=== PATIENT | female | born 1990 | race American Indian/Alaskan Native ===

== ENCOUNTER 2017-06-08 01:18 | Emergency (ER) | payer OTHER ==
[2017-06-08 02:23] LABS: Basophils % (Auto) 0.4 % (0.0-1.8); Eosinophils % (Auto) 3.7 % (0.0-4.3); Hematocrit 37.8 % (30.3-42.9); Hemoglobin 12.8 gm/dl (10.1-14.3); Mean Corpuscular HGB Conc 34 % (30-34); Mean Corpuscular Hemoglobin 31 pg (28-32); Mean Corpuscular Volume 91 fl (79-97); Platelet Count 248 K/mm3 (140-440); Red Blood Count 4.18 M/mm3 (3.65-5.03); Red Cell Distribution Width 12.8 % (13.2-15.2); White Blood Count 7.5 K/mm3 (4.5-11.0)
[2017-06-08 02:41] LABS: Bilirubin,Urine NEG (Negative); Blood,Urine LG (Negative); Ketones,Urine NEG (Negative); Leukocyte Esterase,Urine TR (Negative); Mucus,Urine 2+ /HPF; Nitrite,Urine NEG (Negative); Urobilinogen,Urine < 2.0 mg/dL (<2.0)
[2017-06-08 02:42] LABS: RBC,Urine > 182.0 /HPF (0.0-6.0)
--- NOTE | 2017-06-08 04:56 | Ultrasound Report ---
FINAL REPORT PROCEDURE: US OB TRANSVAGINAL TECHNIQUE: Real-time transvaginal sonography of the uterus, placenta, amniotic fluid, adnexa, and fetus was performed with image documentation. Measurements were obtained to determine age/size. M-mode Doppler was used to document heartbeat. CPT 20395 HISTORY: vag bleed COMPARISON: No prior studies are available for comparison. FINDINGS: Uterus measures 11.2 x 5.1 x 7.2 centimeters. The endometrium is thickened at 15 millimeters. There is no endometrial fluid. There is no intrauterine gestational sac. The right ovary measures 4 x 3.6 x 2.4 centimeters. There is a 2.2 centimeter cyst. Left ovary measures 2.3 x 1.9 x 1.8 centimeters. There is no evidence of ectopic . There is no free pelvic fluid. IMPRESSION: No intrauterine or ectopic is identified. There is a cyst in the right ovary.
--- NOTE | 2017-06-08 04:57 | Ultrasound Report ---
FINAL REPORT PROCEDURE: US OB LESS THAN 14 WEEKS TECHNIQUE: Real-time transabdominal sonography of the uterus, placenta, amniotic fluid, adnexa, and fetus was performed with image documentation. Measurements were obtained to determine age/size. M-mode Doppler was used to document heartbeat. HISTORY: vag bleed COMPARISON: No prior studies are available for comparison. FINDINGS: Uterus measures 11.2 x 5.1 x 7.2 centimeters. The endometrium is thickened at 15 millimeters. There is no endometrial fluid. There is no intrauterine gestational sac. The right ovary measures 4 x 3.6 x 2.4 centimeters. There is a 2.2 centimeter cyst. Left ovary measures 2.3 x 1.9 x 1.8 centimeters. There is no evidence of ectopic . There is no free pelvic fluid. IMPRESSION: No intrauterine or ectopic is identified. There is a cyst in the right ovary.
--- NOTE | 2017-06-08 07:39 | Emergency Department Report ---
ED General Adult HPI - General Chief complaint: Vaginal Bleeding Stated complaint: VAGINAL BLEEDING Time Seen by Provider: 06/08/17 07:00 Source: patient Mode of arrival: Ambulatory Limitations: No Limitations - History of Present Illness Initial comments: Patient is a 26-year-old female no significant past medical history who presents with vaginal bleeding that has been going on intermittently for the last 4 days. Patient states that she took a test and that was positive. Patient states that she is having some intermittent bleeding like menstrual pain. Patient states pain when it comes as a 3 out of 10 nothing makes it better or worse she is currently denying any pain at the moment. Patient also denies having any nausea or vomiting. Severity scale (0 -10): 4 - Related Data Previous Rx's Medication Instructions Recorded Last Taken Type Ondansetron [Zofran] 4 mg PO Q8HR PRN #10 tablet 07/25/14 Unknown Rx traMADol [Ultram 50 MG tab] 50 mg PO Q6HR PRN #20 tablet 07/25/14 Unknown Rx Nitrofurantoin Monohyd/M-Cryst 100 mg PO BID #14 capsule 06/08/17 Unknown Rx [Macrobid 100 mg Capsule] Allergies Allergy/AdvReac Type Severity Reaction Status Date / Time No Known Allergies Allergy Unverified 07/25/14 15:51 ED Review of Systems ROS: Stated complaint: VAGINAL BLEEDING Other details as noted in HPI Constitutional: denies: chills, fever Eyes: denies: eye pain, eye discharge, vision change ENT: denies: ear pain, throat pain Respiratory: denies: cough, shortness of breath, wheezing Cardiovascular: denies: chest pain, palpitations Endocrine: no symptoms reported Gastrointestinal: denies: abdominal pain, nausea, diarrhea Genitourinary: as per HPI. denies: urgency, dysuria, discharge Musculoskeletal: denies: back pain, joint swelling, arthralgia Skin: denies: rash, lesions Neurological: denies: headache, weakness, paresthesias Psychiatric: denies: anxiety, depression Hematological/Lymphatic: denies: easy bleeding, easy bruising ED Past Medical Hx - Past Medical History Previous Medical History?: No - Surgical History Past Surgical History?: No - Social History Smoking Status: Never Smoker Substance Use Type: None - Medications Home Medications: Home Medications Medication Instructions Recorded Confirmed Last Taken Type Ondansetron [Zofran] 4 mg PO Q8HR PRN #10 tablet 07/25/14 Unknown Rx traMADol [Ultram 50 MG tab] 50 mg PO Q6HR PRN #20 tablet 07/25/14 Unknown Rx Nitrofurantoin Monohyd/M-Cryst 100 mg PO BID #14 capsule 06/08/17 Unknown Rx [Macrobid 100 mg Capsule] ED Physical Exam - General Limitations: No Limitations General appearance: alert, in no apparent distress - Head Head exam: Present: atraumatic, normocephalic - Eye Eye exam: Present: normal appearance - ENT ENT exam: Present: mucous membranes moist - Neck Neck exam: Present: normal inspection - Respiratory Respiratory exam: Present: normal lung sounds bilaterally. Absent: respiratory distress - Cardiovascular Cardiovascular Exam: Present: regular rate, normal rhythm. Absent: systolic murmur, diastolic murmur, rubs, gallop - GI/Abdominal GI/Abdominal exam: Present: soft, normal bowel sounds - Extremities Exam Extremities exam: Present: normal inspection - Back Exam Back exam: Present: normal inspection - Neurological Exam Neurological exam: Present: alert, oriented X3 - Psychiatric Psychiatric exam: Present: normal affect, normal mood - Skin Skin exam: Present: warm, dry, intact, normal color. Absent: rash ED Course Vital Signs 06/08/17 06/08/17 06/08/17 01:20 01:21 04:00 Temperature 98.3 F 98.3 F 98.4 F Pulse Rate 76 77 75 Respiratory 17 18 20 Rate Blood Pressure 124/79 124/79 Blood Pressure 122/70 [Right] O2 Sat by Pulse 98 97 100 Oximetry 06/08/17 04:30 Temperature Pulse Rate Respiratory 20 Rate Blood Pressure Blood Pressure [Right] O2 Sat by Pulse 98 Oximetry ED Medical Decision Making - Lab Data Result diagrams: 06/08/17 01:28 Lab Results 06/08/17 06/08/17 06/08/17 Range/Units 01:28 01:28 01:31 WBC 7.5 (4.5-11.0) K/mm3 RBC 4.18 (3.65-5.03) M/mm3 Hgb 12.8 (10.1-14.3) gm/dl Hct 37.8 (30.3-42.9) % MCV 91 (79-97) fl MCH 31 (28-32) pg MCHC 34 (30-34) % RDW 12.8 L (13.2-15.2) % Plt Count 248 (140-440) K/mm3 Lymph % (Auto) 43.1 H (13.4-35.0) % [place] % (Auto) 12.1 H (0.0-7.3) % Eos % (Auto) 3.7 (0.0-4.3) % Baso % (Auto) 0.4 (0.0-1.8) % Lymph # 3.2 (1.2-5.4) K/mm3 [place] # 0.9 H (0.0-0.8) K/mm3 Eos # 0.3 (0.0-0.4) K/mm3 Baso # 0.0 (0.0-0.1) K/mm3 Seg Neutrophils % 40.7 (40.0-70.0) % Seg Neutrophils # 3.1 (1.8-7.7) K/mm3 HCG, Quant 38.50 H (0-4) mIU/mL Urine Color (Yellow) Urine Turbidity (Clear) Urine pH (5.0-7.0) Ur Specific [place] (1.003-1.030) Urine Protein (Negative) mg/dL Urine Glucose (UA) (Negative) mg/dL Urine Ketones (Negative) mg/dL Urine Blood (Negative) Urine Nitrite (Negative) Urine Bilirubin (Negative) Urine Urobilinogen (<2.0) mg/dL Ur Leukocyte Esterase (Negative) Urine WBC (Auto) (0.0-6.0) /HPF Urine RBC (Auto) (0.0-6.0) /HPF U Epithel Cells (Auto) (0-13.0) /HPF Urine Mucus /HPF Blood Type O POSITIVE Antibody Screen Not Reportable SARBJIT Antibody Screen Negative 06/08/17 Range/Units Unknown WBC (4.5-11.0) K/mm3 RBC (3.65-5.03) M/mm3 Hgb (10.1-14.3) gm/dl Hct (30.3-42.9) % MCV (79-97) fl MCH (28-32) pg MCHC (30-34) % RDW (13.2-15.2) % Plt Count (140-440) K/mm3 Lymph % (Auto) (13.4-35.0) % [place] % (Auto) (0.0-7.3) % Eos % (Auto) (0.0-4.3) % Baso % (Auto) (0.0-1.8) % Lymph # (1.2-5.4) K/mm3 [place] # (0.0-0.8) K/mm3 Eos # (0.0-0.4) K/mm3 Baso # (0.0-0.1) K/mm3 Seg Neutrophils % (40.0-70.0) % Seg Neutrophils # (1.8-7.7) K/mm3 HCG, Quant (0-4) mIU/mL Urine Color Yellow (Yellow) Urine Turbidity Clear (Clear) Urine pH 5.0 (5.0-7.0) Ur Specific [place] 1.021 (1.003-1.030) Urine Protein 30 mg/dl (Negative) mg/dL Urine Glucose (UA) Neg (Negative) mg/dL Urine Ketones Neg (Negative) mg/dL Urine Blood Lg (Negative) Urine Nitrite Neg (Negative) Urine Bilirubin Neg (Negative) Urine Urobilinogen < 2.0 (<2.0) mg/dL Ur Leukocyte Esterase Tr (Negative) Urine WBC (Auto) 13.0 H (0.0-6.0) /HPF Urine RBC (Auto) > 182.0 (0.0-6.0) /HPF U Epithel Cells (Auto) 6.0 (0-13.0) /HPF Urine Mucus 2+ /HPF Blood Type Antibody Screen SARBJIT Antibody Screen - Radiology Data Radiology results: report reviewed, image reviewed Transvaginal ultrasound: Shows no ectopic no signs of intrauterine Transabdominal ultrasound: Shows no signs of ectopic no signs of intrauterine . - Medical Decision Making Chief medical diagnosis: Differential medical diagnosis: UTI, ectopic I will get CBC, CMP, transvaginal ultrasound, intrauterine ultrasound, hCG Quant Patient's Quant is below limits and below the threshold to visualize any IUP. Discussed patient that she will need to follow up with PHARMACY SPECIALIST for repeat test. Patient isn't having any bleeding and discussed with patient return precautions. Additional verbal discharge instructions were given. Patient agrees with plan. Critical care attestation.: If time is entered above; I have spent that time in minutes in the direct care of this critically ill patient, excluding procedure time. ED Disposition Clinical Impression: Vaginal bleeding Qualifiers: Weeks of gestation: less than 8 weeks Qualified Code(s): Z3A.01 - Less than 8 weeks gestation of UTI (urinary tract infection) Qualifiers: Urinary tract infection type: acute cystitis Hematuria presence: without hematuria Qualified Code(s): N30.00 - Acute cystitis without hematuria Disposition: TO HOME OR SELFCARE Is pt being admited?: No Does the pt Need Aspirin: No Condition: Stable Instructions: Early Labor Signs (ED), Urinary Tract Infection in Women (ED) Prescriptions: Nitrofurantoin Monohyd/M-Cryst [Macrobid 100 mg Capsule] 100 mg PO BID #14 capsule Referrals: RUDDY ORTIZ MD [Staff Physician] - 3-5 Days
[2017-06-08 08:05] VITALS: BP 119/81
== END 2017-06-08 08:03 | disposition home or self-care (01) ==
LOC: ED 01:18
DX: O23.40 Unspecified infection of urinary tract in pregnancy, unspecified trimester (principal); Z3A.00 Weeks of gestation of pregnancy not specified
CPT/HCPCS: 36415; 76801; 76817; 81001; 84702; 85025; 86850; 86900; 86901; 99284

== ENCOUNTER 2018-04-05 14:53 | Outpatient (CLI) | payer MEDICAID, OTHER ==
[2018-04-05 19:51] VITALS: BP 119/66
[2018-04-05] MEDS ORDERED: LACTATED RINGERS 1,000 ML IV ONE (19:58)
--- NOTE | 2018-04-05 23:20 | Ultrasound Report ---
FINAL REPORT PROCEDURE: US OB LIMITED TECHNIQUE: Real-time limited sonographic examination was performed for evaluation of size, position, heartbeat, fluid volume for each fetus with image documentation (1 or more fetuses). CPT 09481 HISTORY: Non reassuring tracing; ARLEY COMPARISON: No prior studies are available for comparison. FINDINGS: Fetus is in a cephalic presentation. Amniotic fluid index is 17.4 centimeters. Heart rate is 164 beats per minute. Placental is not imaged. IMPRESSION: Amniotic fluid index is 17.4 centimeters.
--- NOTE | 2018-04-05 23:21 | Ultrasound Report ---
FINAL REPORT PROCEDURE: US OB LIMITED TECHNIQUE: Real-time limited sonographic examination was performed for evaluation of size, position, heartbeat, fluid volume for each fetus with image documentation (1 or more fetuses). CPT 77122 HISTORY: Non reassuring tracing; ARLEY COMPARISON: No prior studies are available for comparison. FINDINGS: Fetus is in a cephalic presentation. Amniotic fluid index is 17.4 centimeters. Heart rate is 164 beats per minute. Placental is not imaged. Umbilical artery SD ratio is 2.02 with normal waveforms. Resistive index is 0.5 with normal waveforms. IMPRESSION: Amniotic fluid index is 17.4 centimeters. Umbilical artery SD ratio is 2.02 with normal waveforms. Resistive index is 0.5 with normal waveforms.
--- NOTE | 2018-04-06 07:57 | Ultrasound Report ---
FINAL REPORT PROCEDURE: US OB BPP WO NON-STRESS TECHNIQUE: Real-time limited sonographic examination was performed for evaluation of size, position, heartbeat, fluid volume for each fetus with image documentation (1 or more fetuses). CPT 01661 HISTORY: Non reassuring tracing; ARLEY COMPARISON: No prior studies are available for comparison. FINDINGS: The biophysical profile: breathing movements: 2. movements: 2. posterior and tone: 2. Qualitative amniotic fluid volume: 2. Total score: 8/8. The heart rate: 164 beats per minute per IMPRESSION: Normal biophysical profile.
== END 2018-04-05 20:04 | disposition left against medical advice (07) ==
LOC: TRG 14:53
PROVIDERS: ATTEND Obstetrics & Gynecology
DX: O47.1 False labor at or after 37 completed weeks of gestation (principal); Z3A.39 39 weeks gestation of pregnancy
CPT/HCPCS: 59025; 76815; 76819; 76820; 96360; J7120

== ENCOUNTER 2018-04-29 05:43 | Observation (INO) | payer MEDICAID ==
[2018-04-29] MEDS ORDERED: BENADRYL IV ONE (06:19)
[2018-04-29] MEDS ORDERED: SOLU-Medrol IV ONE (06:19)
[2018-04-29] MEDS ORDERED: MAGNESIUM SULFATE 2GM/50ML 2 GM/50 ML BAG IV ONE ×2 (06:19→08:00)
[2018-04-29] MEDS ORDERED: COMPAZINE IV ONE (06:19)
[2018-04-29] MEDS ORDERED: CATAPRES PO ONE ×3 (06:20→09:55)
[2018-04-29 06:51] LABS: Basophils % (Auto) 0.6 % (0.0-1.8); Eosinophils % (Auto) 0.1 % (0.0-4.3); Hematocrit 35.4 % (30.3-42.9); Hemoglobin 11.6 gm/dl (10.1-14.3); Lymphocytes # (Auto) 0.8 K/mm3 (1.2-5.4); Lymphocytes % (Auto) 9.6 % (13.4-35.0); Mean Corpuscular HGB Conc 33 % (30-34); Mean Corpuscular Hemoglobin 29 pg (28-32); Mean Corpuscular Volume 89 fl (79-97); Monocytes # (Auto) 0.1 K/mm3 (0.0-0.8); Platelet Count 261 K/mm3 (140-440); Red Blood Count 3.98 M/mm3 (3.65-5.03); Red Cell Distribution Width 15.2 % (13.2-15.2)
[2018-04-29 06:52] LABS: INR 0.9 (0.87-1.13)
[2018-04-29 06:53] LABS: Partial Thromboplastin Time 28.1 Sec. (24.2-36.6)
[2018-04-29 06:58] LABS: Alanine Aminotransferase 22 units/L (7-56); Albumin 4.1 g/dL (3.9-5); BUN/Creatinine Ratio 10; Blood Urea Nitrogen 6 mg/dL (7-17); Calcium 8.9 mg/dL (8.4-10.2); Hemolysis Index 18
[2018-04-29] MEDS ORDERED: MORPHINE IV ONE ×2 (07:10→09:55)
--- NOTE | 2018-04-29 07:50 | Cat Scan Report ---
CT HEAD WITHOUT CONTRAST: HISTORY: Headache. TECHNIQUE: Sequential 2.5mm CT images. COMPARISON: none. FINDINGS: Cerebral Parenchyma: Within normal limits. Cerebellum: Within normal limits. Brainstem: Within normal limits. Ventricles: Normal. Sella: Normal. Extra-axial spaces: Normal. Basal Cisterns: Normal. Intracranial Hemorrhage: None. Midline Shift: None. Calvarium: Normal. Sinuses: Normal. Mastoid Air Cells: Normal. Visualized Orbits: Normal. IMPRESSION: Cranial CT scan within normal limits.
[2018-04-29 08:42] LABS: Bilirubin,Urine NEG (Negative); Blood,Urine NEG (Negative); Color,Urine Straw (Yellow); Mucus,Urine FEW /HPF; Urobilinogen,Urine < 2.0 mg/dL (<2.0); WBC,Urine < 1.0 /HPF (0.0-6.0)
--- NOTE | 2018-04-29 09:24 | Emergency Department Report ---
ED Headache HPI - General Chief Complaint: Headache Stated Complaint: HEADACHE Time Seen by Provider: 04/29/18 06:18 - History of Present Illness Initial Comments: Patient reports post 04/[address] Braun OB. Reports that she had an epidural. Reports that the epidural site did bleed after removal. Reports that since yesterday she has had worsening headache and nausea. Reports that she went to [facility] and received some pain medication and was discharged. Reports headache symptoms have not improved and she came to the ER here for further evaluation. Timing/Duration: other (approximately 2 days) Quality: moderate Head Injury Location: frontal, parietal Recent Head Trauma: no recent headache/trauma Associated Symptoms: nausea/vomiting, weakness. denies: confusion, fatigue, facial pain, fever/chills, flushing, loss of consciousness, nasal congestion, nasal drainage, numbness in legs/feet, rash, seizures, sinus infection, stiff neck, vision changes Allergies/Adverse Reactions: Allergies No Known Allergies Allergy (Verified 04/05/18 15:27) Home Medications: Ambulatory Orders Vit-Fe Fumar-FA [ Vitamin] 1 tab PO QDAY 04/05/18 valACYclovir [Valtrex] 2 tab PO QDAY 04/19/18 Ferrous Sulfate 325 mg PO BID #60 tablet. 04/20/18 Ibuprofen [Motrin] 600 mg PO Q8H PRN #30 tablet 04/20/18 oxyCODONE /ACETAMINOPHEN [Percocet 5/325] 1 tab PO Q6HR PRN #30 tablet 04/20/18 ED Review of Systems ROS: Stated complaint: HEADACHE Other details as noted in HPI Other: GENERAL: No weight change, fatigue, weakness, fever, chills, or night sweats SKIN: No changes in skin or hair, no itching, no rashes, no jaundice HEAD: No trauma, headache, or visual changes EYES: No blurriness, tearing, itching, acute visual loss, conjunctival discoloration, or scleral icterus EARS: No hearing loss, tinnitus, vertigo, or earache NOSE: No rhinorrhea, stuffiness, sneezing, itching, or epistaxis MOUTH: No bleeding gums, hoarseness, sore throat, or swelling CARDIAC: No new murmur, chest pain, palpitations, dyspnea on exertion, orthopnea , PND, or edema RESPIRATORY: No shortness of breath, wheeze, cough, sputum production, hemoptysis, pneumonia, asthma, bronchitis, or emphysema GI: nausea, vomiting. No dysphagia, change in bowel frequency, diarrhea, constipation, bleeding, hematemesis, melena, hematochezia, or abdominal pain URINARY: No frequency, urgency, polyuria, dysuria, hematuria, or incontinence MUSCULOSKELETAL: No muscle weakness, joint stiffness, decrease in range of motion, redness, swelling NEUROLOGIC: headache, weakness. No loss of sensation, numbness, tingling, tremors, paralysis, seizures HEMATOLOGIC: No anemia, easy bruising, bleeding, petechiae, or purpura ENDOCRINE: No hot or cold intolerance, sweating, polyuria, polydipsia or, polyphagia no thyroid problems ED Past Medical Hx - Past Medical History Previous Medical History?: No Hx Hypertension: No Hx Congestive Heart Failure: No Hx Diabetes: No Hx Deep Vein Thrombosis: No Hx Renal Disease: No Hx Sickle Cell Disease: No Hx Seizures: No Hx Asthma: No Hx COPD: No Hx HIV: No - Surgical History Past Surgical History?: No - Social History Smoking Status: Never Smoker Substance Use Type: None - Medications Home Medications: Home Medications Medication Instructions Recorded Confirmed Last Taken Type Vit-Fe Fumar-FA [ 1 tab PO QDAY 04/05/18 04/29/18 04/19/18 07: 30 History Vitamin] valACYclovir [Valtrex] 2 tab PO QDAY 04/19/18 04/29/18 04/19/18 07:30 History Ferrous Sulfate 325 mg PO BID #60 tablet. 04/20/18 04/29/18 Unknown Rx Ibuprofen [Motrin] 600 mg PO Q8H PRN #30 tablet 04/20/18 04/29/18 Unknown Rx oxyCODONE /ACETAMINOPHEN [Percocet 1 tab PO Q6HR PRN #30 tablet 04/20/18 Unknown Rx 5/325] ED Physical Exam - General Limitations: No Limitations - Other Other exam information: GENERAL: Patient in no acute distress HEAD: Normocephalic, atraumatic EYES: PERRLA, EOM intact, no scleral icterus, visual sexton and acuity wnl NOSE: No tenderness, discharge, sinus tenderness MOUTH: No erythema, bleeding, exudate HEART: Regular rate and rhythm, no murmur, S1-S2 are auscultated, pulses are symmetric LUNGS: bilateral breath sounds. No wheezing, rales, rhonchi ABDOMEN: Normal bowel sounds, no tenderness, no rebound, no guarding, no masses , no CVA tenderness MUSCULOSKELETAL: Normal joint range of motion, no redness, no swelling, no tenderness NEUROLOGIC: GCS 15, Alert and Oriented x3, Cranial nerves intact, normal sensation, normal strength, normal gait, no cerebellar deficit SKIN: Skin is warm and dry, no wounds, no rashes ED Course Vital Signs 04/29/18 04/29/18 04/29/18 05:50 06:35 06:39 Temperature 98.6 F 98 F Pulse Rate 60 62 87 Respiratory 16 16 Rate Blood Pressure 183/109 188/110 Blood Pressure 179/91 [Left] O2 Sat by Pulse 99 99 Oximetry 04/29/18 04/29/18 04/29/18 08:04 08:10 08:16 Temperature Pulse Rate 61 57 L 54 L Respiratory 14 24 Rate Blood Pressure 166/103 166/109 166/109 Blood Pressure [Left] O2 Sat by Pulse 98 96 Oximetry 04/29/18 04/29/18 04/29/18 08:30 08:46 09:16 Temperature Pulse Rate 56 L 57 L 52 L Respiratory 26 H 22 24 Rate Blood Pressure 166/103 166/103 164/95 Blood Pressure [Left] O2 Sat by Pulse 97 94 99 Oximetry 04/29/18 04/29/18 04/29/18 09:30 09:46 10:00 Temperature Pulse Rate 58 L 55 L 55 L Respiratory 15 23 14 Rate Blood Pressure 173/98 166/109 169/96 Blood Pressure [Left] O2 Sat by Pulse 97 97 Oximetry 04/29/18 04/29/18 04/29/18 10:05 10:16 10:30 Temperature Pulse Rate 54 L 60 54 L Respiratory 22 24 Rate Blood Pressure 169/96 169/96 158/88 Blood Pressure [Left] O2 Sat by Pulse 96 99 Oximetry 04/29/18 04/29/18 04/29/18 10:46 11:00 11:16 Temperature Pulse Rate 55 L 55 L 55 L Respiratory 23 21 23 Rate Blood Pressure 173/98 166/89 166/89 Blood Pressure [Left] O2 Sat by Pulse 98 95 97 Oximetry 04/29/18 11:30 Temperature Pulse Rate 54 L Respiratory 17 Rate Blood Pressure 164/88 Blood Pressure [Left] O2 Sat by Pulse 100 Oximetry ED Medical Decision Making - Lab Data Result diagrams: 04/29/18 06:25 04/29/18 06:25 Laboratory Results - last 24 hr 04/29/18 04/29/18 04/29/18 06:25 06:25 06:25 WBC 8.3 RBC 3.98 Hgb 11.6 Hct 35.4 MCV 89 MCH 29 MCHC 33 RDW 15.2 Plt Count 261 Lymph % (Auto) 9.6 L [place] % (Auto) 1.0 Eos % (Auto) 0.1 Baso % (Auto) 0.6 Lymph # 0.8 L [place] # 0.1 Eos # 0.0 Baso # 0.0 Seg Neutrophils % 88.7 H Seg Neutrophils # 7.4 PT INR APTT Sodium 139 Potassium 4.3 Chloride 101.6 Carbon Dioxide 22 Anion Gap 20 BUN 6 L Creatinine 0.6 L Estimated GFR > 60 BUN/Creatinine Ratio 10 Glucose 123 H Calcium 8.9 Total Bilirubin 0.50 AST 18 ALT 22 Alkaline Phosphatase 119 Total Protein 7.6 Albumin 4.1 Albumin/Globulin Ratio 1.2 HCG, Qual Positive HCG, Quant Urine Color Urine Turbidity Urine pH Ur Specific [place] Urine Protein Urine Glucose (UA) Urine Ketones Urine Blood Urine Nitrite Urine Bilirubin Urine Urobilinogen Ur Leukocyte Esterase Urine WBC (Auto) Urine RBC (Auto) U Epithel Cells (Auto) Urine Mucus 04/29/18 04/29/18 04/29/18 06:25 06:25 08:29 WBC RBC Hgb Hct MCV MCH MCHC RDW Plt Count Lymph % (Auto) [place] % (Auto) Eos % (Auto) Baso % (Auto) Lymph # [place] # Eos # Baso # Seg Neutrophils % Seg Neutrophils # PT 12.6 INR 0.90 APTT 28.1 Sodium Potassium Chloride Carbon Dioxide Anion Gap BUN Creatinine Estimated GFR BUN/Creatinine Ratio Glucose Calcium Total Bilirubin AST ALT Alkaline Phosphatase Total Protein Albumin Albumin/Globulin Ratio HCG, Qual HCG, Quant 74.39 H Urine Color Straw Urine Turbidity Clear Urine pH 7.0 Ur Specific [place] 1.005 Urine Protein 30 mg/dl Urine Glucose (UA) Neg Urine Ketones Neg Urine Blood Neg Urine Nitrite Neg Urine Bilirubin Neg Urine Urobilinogen < 2.0 Ur Leukocyte Esterase Neg Urine WBC (Auto) < 1.0 Urine RBC (Auto) 4.0 U Epithel Cells (Auto) < 1.0 Urine Mucus Few - Radiology Data Radiology results: report reviewed - Medical Decision Making At [address] Dr. Amanda Braun updated. Request admit to her service for 24 hour monitoring and magnesium. Critical care attestation.: If time is entered above; I have spent that time in minutes in the direct care of this critically ill patient, excluding procedure time. ED Disposition Clinical Impression: Hypertensive urgency Pre-eclampsia Qualifiers: Trimester: unspecified trimester Qualified Code(s): O14.90 - Unspecified pre- eclampsia, unspecified trimester Disposition: OP ADMIT IP TO THIS HOSP Is pt being admited?: Yes Condition: Stable Time of Disposition: 09:23
[2018-04-29] MEDS ORDERED: SODIUM CHLORIDE FLUSH SYRINGE 10 ML IV PRN (12:10)
[2018-04-29] MEDS ORDERED: TYLENOL PO PRN ×2 (12:10→19:01)
[2018-04-29] MEDS ORDERED: ZOFRAN IV PRN ×2 (12:10→19:01)
[2018-04-29] MEDS ORDERED: PERCOCET 5/325 PO ONE (15:46)
[2018-04-29] MEDS ORDERED: PERCOCET 5/325 ONE (16:08)
--- NOTE | 2018-04-29 18:35 | History and Physical Report ---
History of Present Illness Date of examination: 04/29/18 Date of admission: 04/29/18 12:10 Chief complaint: headache History of present illness: This is a 27 yo post 04/19 vaginal delivery by myself. She had poor care transferred in from [facility]. . Reports that she had an epidural and has had pain in back and headaches since 2 days ago. Reports that the epidural site did bleed after removal. Reports that she went to [place] [facility] and received some pain medication and left without finishing workup. 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 denies: smoking, alcohol abuse, prescription drug abuse , IV drug use - Obstetrical History : 5 Medications and Allergies Allergies Allergy/AdvReac Type Severity Reaction Status Date / Time No Known Allergies Allergy Verified 04/05/18 15:27 Home Medications Medication Instructions Recorded Confirmed Last Taken Type Vit-Fe Fumar-FA [ 1 tab PO QDAY 04/05/18 04/29/18 04/19/18 07: 30 History Vitamin] valACYclovir [Valtrex] 2 tab PO QDAY 04/19/18 04/29/18 04/19/18 07:30 History Ferrous Sulfate 325 mg PO BID #60 tablet. 04/20/18 04/29/18 Unknown Rx Ibuprofen [Motrin] 600 mg PO Q8H PRN #30 tablet 04/20/18 04/29/18 Unknown Rx oxyCODONE /ACETAMINOPHEN [Percocet 1 tab PO Q6HR PRN #30 tablet 04/20/18 Unknown Rx 5/325] Active Meds: Active Medications Acetaminophen (Tylenol) 650 mg PO Q4H PRN PRN Reason: Pain MILD(1-3)/Fever >100.5/SILVERIO Labetalol HCl (Normodyne) 100 mg PO BID MICHELLE Ondansetron HCl (Zofran) 4 mg IV Q8H PRN PRN Reason: Nausea And Vomiting Sodium Chloride (Sodium Chloride Flush Syringe 10 Ml) 10 ml IV BID MICHELLE Sodium Chloride (Sodium Chloride Flush Syringe 10 Ml) 10 ml IV PRN PRN PRN Reason: LINE FLUSH Review of Systems All systems: negative Neurological: headaches - Vital Signs Vital signs: Vital Signs Temp Pulse Resp BP Pulse Ox 98.6 F 60 16 183/109 99 04/29/18 05:50 04/29/18 05:50 04/29/18 05:50 04/29/18 05:50 04/29/18 05:50 Temp Pulse Resp BP Pulse Ox 98.4 F 62 20 141/82 98 04/29/18 16:31 04/29/18 16:31 04/29/18 16:31 04/29/18 16:31 04/29/18 16:31 - Physical Exam Breasts: Positive: normal Cardiovascular: Regular rate, Normal S1 Lungs: Positive: Clear to auscultation, Normal air movement Abdomen: Positive: normal appearance, soft, normal bowel sounds. Negative: distention, tenderness, guarding Genitourinary (Female): Positive: normal external genitalia, normal perenium Uterus: Positive: normal size Deep Tendon Reflex Grade: Normal +2 Results Result Diagrams: 04/29/18 06:25 04/29/18 06:25 Abnormal lab results 04/29/18 04/29/18 04/29/18 Range/Units 06:25 06:25 06:25 Lymph % (Auto) 9.6 L (13.4-35.0) % Lymph # 0.8 L (1.2-5.4) K/mm3 Seg Neutrophils % 88.7 H (40.0-70.0) % BUN 6 L (7-17) mg/dL Creatinine 0.6 L (0.7-1.2) mg/dL Glucose 123 H (65-100) mg/dL HCG, Quant 74.39 H (0-4) mIU/mL All other labs normal. Assessment and Plan Preeclampsia Mag 4g and 2g loading - mag level q6 labs appreciated- essentially normal CT scan neg added labatelol to BP regimen referral to anesthesia to r/o spinal headache close monitor of maternal status
[2018-04-29] MEDS ORDERED: PHENERGAN PR PRN (19:01)
[2018-04-29] MEDS ORDERED: DULCOLAX PR PRN (19:01)
[2018-04-29] MEDS ORDERED: PHENERGAN PO PRN (19:01)
[2018-04-29] MEDS ORDERED: MILK OF MAGNESIA PO PRN (19:01)
[2018-04-29 19:46] LABS: Hematocrit 38.2 % (30.3-42.9); Hemoglobin 12.6 gm/dl (10.1-14.3); Mean Corpuscular HGB Conc 33 % (30-34); Mean Corpuscular Hemoglobin 29 pg (28-32); Mean Corpuscular Volume 89 fl (79-97); Platelet Count 324 K/mm3 (140-440); Red Blood Count 4.32 M/mm3 (3.65-5.03); Red Cell Distribution Width 15.6 % (13.2-15.2)
[2018-04-29] MEDS ORDERED: SODIUM CHLORIDE FLUSH SYRINGE 10 ML IV SCH ×2 (20:00→22:00)
[2018-04-29 20:22] LABS: Alanine Aminotransferase 15 units/L (7-56); Uric Acid 5.4 mg/dL (3.5-7.6)
[2018-04-29] MEDS: LACTATED RINGERS 1,000 ML IV SCH (21:43)
[2018-04-29] MEDS: MAGNESIUM SULFATE 40GM/1000ML 40 GM/1,000 ML BAG IV SCH (21:44)
--- NOTE | 2018-04-29 22:03 | Progress Note ---
Subjective Date of service: 04/29/18 Principal diagnosis: Headache Interval history: 38yo woman PPD 10 s/p epidural for labor analgesia presenting with complaint of severe headache x2 days. She is currently being managed for post- pre- eclampsia and anesthesia has been consulted to evaluate for possible spinal headache. She reports headache starting 2 days ago, initially mild but worsening in severity until today. Pain is described as throbbing, 10/10 and located in the frontal region. Pain is worsened by lying flat and improved by standing or walking. There are no associated fevers/chills, severe back pain, photo/ phonophobia, tinnitis, visual disturbance, or neurologic deficits. She is ambulating and voiding without difficulty. She tried OTC pain meds as well as Tylenol #3 and #4 with no relief. Upon admission, she was found to have elevated BP and was started on Mg and antihypertensives. CT head was negative. She reports that headache has since improved significantly. On physical exam, bilateral upper and lower extremity motor and sensation are grossly intact. Of note, there is no document of obvious wet tap at time of epidural placement. Given the timing and description of headache, concurrent hypertension, and recent improvement in symptoms, there is low suspicion for post-dural puncture headache at this time. The patient has been advised to continue oral hydration as tolerated. Headache may respond to caffeine so caffeine pills 300mg BID-TID may be considered. If symptoms persist or concerning neurologic symptoms arise, would recommend neurology consultation. Objective - Constitutional Vitals: Vital Signs - 12hr 04/29/18 04/29/18 04/29/18 10:00 10:05 10:16 Temperature Pulse Rate 55 L 54 L 60 Respiratory 14 22 Rate Blood Pressure 169/96 169/96 169/96 O2 Sat by Pulse 96 Oximetry 04/29/18 04/29/18 04/29/18 10:30 10:46 11:00 Temperature Pulse Rate 54 L 55 L 55 L Respiratory 24 23 21 Rate Blood Pressure 158/88 173/98 166/89 O2 Sat by Pulse 99 98 95 Oximetry 04/29/18 04/29/18 04/29/18 11:16 11:30 11:46 Temperature Pulse Rate 55 L 54 L 54 L Respiratory 23 17 20 Rate Blood Pressure 166/89 164/88 164/88 O2 Sat by Pulse 97 100 98 Oximetry 04/29/18 04/29/18 04/29/18 12:00 12:16 12:30 Temperature Pulse Rate 54 L 55 L 56 L Respiratory 19 20 20 Rate Blood Pressure 168/89 166/89 159/89 O2 Sat by Pulse 95 97 Oximetry 04/29/18 04/29/18 04/29/18 12:46 13:00 13:15 Temperature Pulse Rate 53 L 54 L Respiratory 19 15 Rate Blood Pressure 159/89 154/87 159/89 O2 Sat by Pulse 97 95 97 Oximetry 04/29/18 04/29/18 04/29/18 15:31 15:32 15:40 Temperature Pulse Rate 57 L 63 Respiratory 19 18 Rate Blood Pressure 139/75 139/75 O2 Sat by Pulse 95 96 Oximetry 04/29/18 04/29/18 04/29/18 15:43 15:50 16:00 Temperature 97.7 F Pulse Rate 59 L 60 Respiratory 20 20 Rate Blood Pressure 139/75 140/86 O2 Sat by Pulse 95 92 Oximetry 04/29/18 16:31 Temperature 98.4 F Pulse Rate 62 Respiratory 20 Rate Blood Pressure 141/82 O2 Sat by Pulse 98 Oximetry - Labs CBC & Chem 7: 04/29/18 19:30 04/29/18 19:30 Labs: Abnormal lab results 04/29/18 04/29/18 04/29/18 Range/Units 06:25 06:25 06:25 RDW (13.2-15.2) % Lymph % (Auto) 9.6 L (13.4-35.0) % Lymph # 0.8 L (1.2-5.4) K/mm3 Seg Neutrophils % 88.7 H (40.0-70.0) % BUN 6 L (7-17) mg/dL Creatinine 0.6 L (0.7-1.2) mg/dL Glucose 123 H (65-100) mg/dL Lactate Dehydrogenase (91-180) units/L HCG, Quant 74.39 H (0-4) mIU/mL 04/29/18 04/29/18 Range/Units 19:30 19:30 RDW 15.6 H (13.2-15.2) % Lymph % (Auto) (13.4-35.0) % Lymph # (1.2-5.4) K/mm3 Seg Neutrophils % (40.0-70.0) % BUN (7-17) mg/dL Creatinine (0.7-1.2) mg/dL Glucose (65-100) mg/dL Lactate Dehydrogenase 321 H (91-180) units/L HCG, Quant (0-4) mIU/mL
[2018-04-29] MEDS: NORMODYNE PO SCH (22:12)
[2018-04-29] MEDS: MOTRIN PO SCH (22:12)
[2018-04-29] MEDS: COLACE PO SCH (22:13)
[2018-04-30] MEDS: MOTRIN PO SCH ×3 (05:28→18:15)
[2018-04-30] MEDS: NORMODYNE PO SCH ×2 (10:25→22:11)
[2018-04-30] MEDS: COLACE PO SCH ×2 (10:41→22:11)
[2018-04-30] MEDS: PRENATAL VITAMIN PO SCH (10:42)
[2018-04-30] MEDS ORDERED: MILK OF MAGNESIA PO PRN (17:10)
--- NOTE | 2018-04-30 17:10 | Progress Note ---
Assessment and Plan A: preeclampsia on Magnesium sulfate for seizure prophylaxis P: Continue magnesium for 24 hrs, then observe BP curve. Anticipate discharge tomorrow with 1 wk follow up for BP check in the office. Subjective - Subjective Date of service: 04/30/18 Principal diagnosis: Preeclampsia Interval history: Pt feels much better today. Her headache has resolved. Patient reports: appetite normal, voiding normally, pain well controlled Objective - Vital Signs Latest vital signs: Vital Signs Temp Pulse Pulse Resp BP BP Pulse Ox 04/30/18 14:10 98.7 F 67 20 121/76 95 04/30/18 11:50 98.2 F 70 24 131/79 95 04/30/18 10:25 87 117/72 04/30/18 10:00 98.6 F 82 20 125/77 95 04/30/18 07:30 87 04/30/18 07:23 98.1 F 72 20 117/72 96 04/30/18 06:00 98.7 F 66 18 107/78 04/30/18 05:28 18 04/30/18 03:00 98.7 F 82 16 112/56 04/30/18 00:00 98.7 F 86 16 110/52 04/29/18 23:00 98.6 F 71 18 114/78 04/29/18 22:12 68 18 132/70 04/29/18 21:30 98.7 F 77 16 118/71 Intake and Output 04/30/18 04/30/18 04/30/18 06:59 14:59 22:59 Intake Total 240 Output Total 900 600 Balance -900 -360 Intake: Oral 240 Output: Urine 900 600 Void 900 600 Other: Total, Intake Amount 240 Total, Output Amount 300 600 Voiding Method Bedside Commode # Voids Void 1 - Exam Breasts: Present: deferred Cardiovascular: Present: Regular rate Lungs: Present: Clear to auscultation Abdomen: Present: soft (obese ) Extremities: Present: edema - Labs Labs: Abnormal lab results 04/29/18 04/29/18 04/30/18 Range/Units 19:30 19:30 00:15 RDW 15.6 H (13.2-15.2) % Magnesium 4.00 H (1.7-2.3) mg/dL Lactate Dehydrogenase 321 H (91-180) units/L 08/31/18 Range/Units 06:06 RDW (13.2-15.2) % Magnesium 5.40 H (1.7-2.3) mg/dL Lactate Dehydrogenase (91-180) units/L
[2018-04-30] MEDS: MAGNESIUM SULFATE 40GM/1000ML 40 GM/1,000 ML BAG IV SCH (17:20)
[2018-05-01] MEDS: MOTRIN PO SCH ×3 (00:09→17:30)
[2018-05-01] MEDS: PRENATAL VITAMIN PO SCH (10:11)
[2018-05-01] MEDS: COLACE PO SCH ×2 (10:11→21:55)
[2018-05-01] MEDS: NORMODYNE PO SCH ×3 (10:13→21:55)
--- NOTE | 2018-05-01 13:11 | Progress Note ---
Assessment and Plan HD 2 for this patient with post preeclampsia, now resolved. Patient doing well and is ready to go home. Will discharge on today. Subjective - Subjective Principal diagnosis: Preeclampsia Interval history: Patient states that she feels much better Patient reports: appetite normal, voiding normally, pain well controlled, ambulating normally Objective - Vital Signs Latest vital signs: Vital Signs Temp Pulse Resp BP BP Pulse Ox 05/01/18 10:13 74 107/64 05/01/18 08:22 98.7 F 68 20 137/83 05/01/18 06:24 18 05/01/18 04:15 98.2 F 74 18 129/79 05/01/18 01:09 18 05/01/18 00:09 20 05/01/18 00:00 98.4 F 66 18 114/70 04/30/18 22:11 82 140/80 04/30/18 20:20 98.0 F 76 18 133/82 04/30/18 18:12 98.4 F 67 20 141/85 96 04/30/18 16:23 98.4 F 66 20 133/83 95 04/30/18 14:10 98.7 F 67 20 121/76 95 Intake and Output 04/30/18 05/01/18 05/01/18 22:59 06:59 14:59 Intake Total 1100 Output Total 500 Balance 600 Intake: IV 980 MAGNESIUM SULFATE 40GM/ 980 1000ML 40 gm In 1,000 ml @ 2 GM/HR 50 mls/hr IV DIRECT MICHELLE Rx#:[id number] Oral 120 Output: Urine 500 Void 500 Other: Total, Intake Amount 120 Total, Output Amount 500 - Exam Breasts: Present: deferred Cardiovascular: Present: Regular rate, Normal S1, Normal S2 Lungs: Present: Clear to auscultation, Normal air movement Abdomen: Present: normal appearance, soft, normal bowel sounds Deep Tendon Reflex Grade: Normal +2
--- NOTE | 2018-05-01 13:12 | Discharge Summary ---
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 Hospitalization Reason for admission: other (post preeclampsia) Episiotomy: none Laceration: none Hospital course: Issue resolved Condition at discharge: Good Disposition: DC-01 TO HOME OR SELFCARE Plan - Provider Discharge Summary Activity: routine, no sex for 6 weeks, no heavy lifting 4 weeks, no strenuous exercise Diet: routine Instructions: routine Additional instructions: [] Smoking cessation referral if applicable(refer to patient education folder for contact #) [] Refer to [facility] Booklet Call your doctor immediately for: * Fever > 100.5 * Heavy vaginal bleeding ( >1 pad per hour) * Severe persistent headache * Shortness of breath * Reddened, hot, painful area to leg or breast * Drainage or odor from incision. * Keep incision clean and dry at all times and follow doctor's instructions regarding bathing/showering - Follow up plan Follow up: PRIMARY CARE, [Primary Care Provider] - 3-5 Days
[2018-05-01] MEDS: PERCOCET 5/325 PO PRN ×2 (15:03→21:55)
[2018-05-01] MEDS ORDERED: APRESOLINE PO ONE ×2 (17:00→18:24)
[2018-05-01] MEDS: FIORICET PO PRN (18:35)
[2018-05-01] MEDS: NORCO 5/325 PO PRN (19:40)
[2018-05-01] MEDS: BENADRYL PO PRN (19:40)
[2018-05-01] MEDS ORDERED: MORPHINE IV ONE (20:00)
[2018-05-01] MEDS ORDERED: MAGNESIUM SULFATE 4GM/100ML 4 GM/100 ML BAG IV ONE (23:51)
[2018-05-02] MEDS: FIORICET PO PRN ×2 (00:04→23:20)
[2018-05-02] MEDS: MOTRIN PO SCH ×4 (00:04→19:40)
[2018-05-02] MEDS: MAGNESIUM SULFATE 40GM/1000ML 40 GM/1,000 ML BAG IV SCH ×2 (00:57→19:13)
[2018-05-02] MEDS: LACTATED RINGERS 1,000 ML IV SCH ×2 (00:58→13:15)
[2018-05-02] MEDS: PERCOCET 5/325 PO PRN ×2 (04:47→19:40)
[2018-05-02] MEDS: COLACE PO SCH ×2 (10:24→23:20)
[2018-05-02] MEDS: NORMODYNE PO SCH ×2 (10:24→23:20)
[2018-05-02] MEDS: PRENATAL VITAMIN PO SCH (10:24)
[2018-05-02] MEDS: NORCO 5/325 PO PRN (10:45)
[2018-05-02] MEDS ORDERED: NORMODYNE PO ONE (16:00)
[2018-05-03] MEDS: PERCOCET 5/325 PO PRN ×3 (03:20→20:59)
[2018-05-03] MEDS: MOTRIN PO SCH ×3 (03:20→23:09)
[2018-05-03] MEDS: FIORICET PO PRN ×2 (07:55→12:20)
--- NOTE | 2018-05-03 08:06 | Progress Note ---
Assessment and Plan HD 3 for the patient who is now 13 days post . Patient still continues to have markedly elevated blood pressures. Will add procardia to regimen to see if helps with bp control. Subjective - Subjective Date of service: 05/03/18 Principal diagnosis: Preeclampsia Interval history: Patient was feeling better on Thursday and then prior to discharge, she began to have a headache again and her pressure was found to be markedly elevated. Patient requested to be put back on Magnesium for headache. Her pressures have remained despite regular medicine and increase to labetalol 200 bid. Patient reports: appetite normal, voiding normally, ambulating normally Objective - Vital Signs Latest vital signs: Vital Signs Temp Pulse Resp Resp BP BP BP 05/03/18 06:00 97.8 F 60 20 166/99 05/03/18 04:20 18 05/03/18 04:15 98.8 F 61 20 158/99 05/03/18 03:20 18 05/03/18 02:10 98.4 F 68 18 162/93 05/03/18 00:20 18 05/02/18 23:20 98.4 F 66 18 147/87 147/87 05/02/18 22:00 98.0 F 72 18 140/87 05/02/18 20:40 18 05/02/18 20:10 98.3 F 68 18 153/94 05/02/18 19:40 18 18 05/02/18 18:12 66 18 145/85 05/02/18 18:00 97.9 F 69 156/91 05/02/18 16:15 98.2 F 70 16 150/96 150/96 05/02/18 16:00 98.1 F 89 154/89 05/02/18 14:00 98.0 F 64 18 150/90 05/02/18 12:00 58 L 16 155/90 05/02/18 10:24 65 18 165/96 165/96 05/02/18 10:00 64 139/87 Pulse Ox 05/03/18 06:00 05/03/18 04:20 05/03/18 04:15 05/03/18 03:20 05/03/18 02:10 98 05/03/18 00:20 05/02/18 23:20 99 05/02/18 22:00 99 05/02/18 20:40 05/02/18 20:10 98 09/02/18 19:40 05/02/18 18:12 99 05/02/18 18:00 05/02/18 16:15 98 05/02/18 16:00 05/02/18 14:00 97 05/02/18 12:00 100 05/02/18 10:24 99 05/02/18 10:00 Intake and Output 05/02/18 05/03/18 05/03/18 22:59 06:59 14:59 Intake Total 1153.333 Output Total 1650 600 Balance -496.667 -600 Intake: IV 913.333 MAGNESIUM SULFATE 40GM/ 913.333 1000ML 40 gm In 1,000 ml @ 2 GM/HR 50 mls/hr IV DIRECT MICHELLE Rx#:[id number] Oral 120 Intake, Free Water 120 Output: Urine 1650 600 Void 1650 600 Other: Total, Intake Amount 120 Total, Output Amount 600 600 # Voids Void 3 - Exam Cardiovascular: Present: Regular rate, Normal S1 Lungs: Present: Clear to auscultation, Normal air movement Abdomen: Present: normal appearance, soft, normal bowel sounds Extremities: Present: normal Deep Tendon Reflex Grade: Normal +2
[2018-05-03] MEDS: PROCARDIA XL PO SCH ×2 (09:00→20:59)
[2018-05-03] MEDS: COLACE PO SCH ×2 (10:38→21:12)
[2018-05-03] MEDS: PRENATAL VITAMIN PO SCH (10:39)
[2018-05-03] MEDS: NORMODYNE PO SCH ×2 (10:39→20:59)
[2018-05-03] MEDS: BENADRYL PO PRN (20:57)
[2018-05-04] MEDS: PERCOCET 5/325 PO PRN ×3 (03:29→22:46)
[2018-05-04] MEDS: MOTRIN PO SCH ×3 (05:20→18:41)
[2018-05-04] MEDS: NORMODYNE PO SCH ×2 (08:00→22:36)
[2018-05-04] MEDS: COLACE PO SCH ×2 (08:00→22:39)
[2018-05-04] MEDS: PROCARDIA XL PO SCH ×2 (08:00→22:38)
--- NOTE | 2018-05-04 08:20 | Progress Note ---
Assessment and Plan A: preeclampsia s/p two round of magnesium sulfate Headache s/p normal CT head P: Montior BP curve on current regimen of Labetalol and Procardia. Anticipate discharge tomorrow. Subjective - Subjective Date of service: 05/04/18 Principal diagnosis: Preeclampsia Interval history: Pt feels much better today. She still reports intermittent headache that is improved only by Percocet, per pt. She declines discharge today and asks to be observed until tomorrow. Patient reports: appetite normal, pain well controlled, no nauseated Objective - Vital Signs Latest vital signs: Vital Signs Temp Pulse Resp BP BP Pulse Ox 05/04/18 07:19 98.2 F 83 18 134/66 97 05/04/18 04:15 98.0 F 78 20 118/65 05/04/18 03:29 18 05/04/18 00:00 98.3 F 61 20 139/86 05/03/18 20:59 62 18 157/93 05/03/18 20:00 98.4 F 63 20 138/87 05/03/18 16:20 98.0 F 71 18 121/75 95 05/03/18 11:08 98.0 F 61 18 145/84 98 Intake and Output 05/03/18 05/04/18 05/04/18 22:59 06:59 14:59 Intake Total 960 240 Balance 960 240 Intake: Oral 960 240 Other: Total, Intake Amount 480 240 # Voids Void 1 1 - Exam Breasts: Present: deferred Cardiovascular: Present: Regular rate Lungs: Present: Clear to auscultation Abdomen: Present: soft Uterus: Present: fundal height below umbilicus Extremities: Present: normal. Absent: edema
[2018-05-04] MEDS: PRENATAL VITAMIN PO SCH (10:00)
--- NOTE | 2018-05-05 08:13 | Progress Note ---
Assessment and Plan Preeclampsia s/p 2 rounds of mag Medications labetolol 200 bid and Procardia 90mg bid vss 130-140/80s f/u in 1 week Subjective - Subjective Date of service: 05/05/18 Principal diagnosis: Preeclampsia Interval history: This is a 27 yo post 04/19 vaginal delivery by myself. She had poor care transferred in from [facility]. . Reports that she had an epidural and has had pain in back and headaches since 2 days ago. Reports that the epidural site did bleed after removal. Reports that she went to [facility] and received some pain medication and left without finishing workup. Patient reports: appetite normal, voiding normally, pain well controlled, ambulating normally Objective - Vital Signs Latest vital signs: Vital Signs Temp Pulse Resp BP BP Pulse Ox 05/05/18 04:15 98.2 F 58 L 20 144/67 05/05/18 00:00 98.8 F 58 L 20 146/91 05/04/18 22:36 69 127/83 05/04/18 20:00 98.2 F 61 20 144/86 05/04/18 16:01 98.3 F 85 16 125/76 97 05/04/18 12:17 98 F 75 18 130/84 97 05/04/18 11:16 84 98 Intake and Output 05/04/18 05/05/18 05/05/18 23:59 07:59 15:59 Intake Total 480 240 Balance 480 240 Intake: Oral 480 240 Other: Total, Intake Amount 240 240 # Voids Void 1 1 # Bowel Movements 0 - Exam Breasts: Present: normal Cardiovascular: Present: Regular rate, Normal S1 Lungs: Present: Clear to auscultation, Normal air movement Abdomen: Present: normal appearance, soft, normal bowel sounds. Absent: distention, tenderness, guarding Vulva: both: normal Uterus: Present: normal, firm, fundal height below umbilicus. Absent: bogginess , tenderness Extremities: Present: normal Deep Tendon Reflex Grade: Normal +2
[2018-05-05] MEDS: PERCOCET 5/325 PO PRN (08:15)
[2018-05-05] MEDS: PRENATAL VITAMIN PO SCH (08:15)
[2018-05-05] MEDS: PROCARDIA XL PO SCH (08:15)
[2018-05-05] MEDS: COLACE PO SCH (08:15)
[2018-05-05] MEDS: NORMODYNE PO SCH (08:15)
--- NOTE | 2018-05-05 08:16 | Discharge Summary ---
Providers - Providers Date of Admission: 05/04/18 08:42 Date of discharge: 05/05/18 Attending physician: ELISEO SANDERSON MD 04/29/18 19:01 Consult to Physician [CONS] Urgent Comment: Consulting Provider: AMINAH WEBER Physician Instructions: Reason For Exam: headache Primary care physician: IT APPLICATIONS ANALYST Hospitalization Reason for admission: other complications: other (preeclampsia ) Condition at discharge: Good Disposition: DC-01 TO HOME OR SELFCARE Plan - Discharge Medications Prescriptions: Labetalol [Normodyne TAB] 200 mg PO BID #60 tablet NIFEdipine XL [Procardia Xl] 90 mg PO BID #60 tablet - Provider Discharge Summary Additional instructions: [] Smoking cessation referral if applicable(refer to patient education folder for contact #) [] Refer to [facility] Booklet Call your doctor immediately for: * Fever > 100.5 * Heavy vaginal bleeding ( >1 pad per hour) * Severe persistent headache * Shortness of breath * Reddened, hot, painful area to leg or breast * Drainage or odor from incision. * Keep incision clean and dry at all times and follow doctor's instructions regarding bathing/showering - Follow up plan Follow up: PRIMARY CAREMD [Primary Care Provider] - 3-5 Days Forms: [facility] Discharge Summary
[2018-05-05 09:23] VITALS: BP 115/71
== END 2018-05-05 10:30 | disposition home or self-care (01) ==
LOC: ED 05:43 → 4A 12:10 → 3A 15:55 → OB 21:11 → OBSVTOIN 05-04 08:42 → INTOOBSV 05-04 08:42
PROVIDERS: ADMIT Obstetrics & Gynecology; ATTEND Obstetrics & Gynecology
DX: O14.95 Unspecified pre-eclampsia, complicating the puerperium (principal)
CPT/HCPCS: 36415; 70450; 80053; 81001; 82565; 83615; 83735; 84450; 84460; 84550; 84702; 84703; 85025; 85027; 85610; 85730; 96365; 96366; 96375; 96376; 99285; G0378; J0780; J1200; J2270; J2930; J3475; J7120; 96367

== ENCOUNTER 2020-03-06 22:13 | Emergency (ER) | payer MEDICAID ==
[2020-03-06 22:21] VITALS: BP 135/82
[2020-03-06 22:53] LABS: Basophils % (Auto) 0.1 % (0.0-1.8); Eosinophils % (Auto) 0.2 % (0.0-4.3); Hematocrit 33.2 % (30.3-42.9); Hemoglobin 11.7 gm/dl (10.1-14.3); Lymphocytes % (Auto) 13.1 % (13.4-35.0); Mean Corpuscular HGB Conc 35 % (30-34); Mean Corpuscular Volume 93 fl (79-97); Monocytes # (Auto) 0.5 K/mm3 (0.0-0.8); Monocytes % (Auto) 3.4 % (0.0-7.3); Platelet Count 272 K/mm3 (140-440); Red Blood Count 3.57 M/mm3 (3.65-5.03); Red Cell Distribution Width 13.9 % (13.2-15.2)
[2020-03-06 23:05] LABS: Bilirubin,Urine NEG (Negative); Blood,Urine NEG (Negative); Color,Urine Yellow (Yellow); Mucus,Urine 3+ /HPF; Urobilinogen,Urine < 2.0 mg/dL (<2.0)
[2020-03-06 23:23] LABS: Alanine Aminotransferase 7 units/L (7-56); BUN/Creatinine Ratio 12; Blood Urea Nitrogen 6 mg/dL (7-17); Calcium 8.9 mg/dL (8.4-10.2); Hemolysis Index 8
== END 2020-03-07 00:01 | disposition left against medical advice (07) ==
LOC: ED 22:13
DX: R10.9 Unspecified abdominal pain (principal); Z53.21 Procedure and treatment not carried out due to patient leaving prior to being seen by health care provider
CPT/HCPCS: 36415; 80053; 81001; 84702; 85025

== ENCOUNTER 2020-08-09 20:36 | Inpatient (IN) | payer MEDICAID ==
[2020-08-09] MEDS ORDERED: TERBUTALINE 1 MG/1 ML INJ SUB-Q PRN (22:07)
[2020-08-09] MEDS ORDERED: LIDOCAINE (2%) 20 MG/1 ML VIAL 20 ML MDV INFILTRATI ONE (22:07)
[2020-08-09] MEDS ORDERED: ePHEDrine SULFATE 50 MG/1 ML INJ IV PRN (22:07)
[2020-08-09] MEDS ORDERED: PROMETHAZINE 25 MG TAB PO PRN (22:07)
[2020-08-09] MEDS ORDERED: BUTORPHANOL 2 MG/1 ML INJ IV PRN ×2 (22:07)
[2020-08-09] MEDS ORDERED: ONDANSETRON 4 MG/2 ML INJ IV PRN (22:07)
[2020-08-09] MEDS ORDERED: NALOXONE 0.4 MG/1 ML INJ IV PRN (22:07)
[2020-08-09] MEDS ORDERED: MINERAL OIL 30 ML ORAL LIQD PO PRN (22:07)
[2020-08-09 22:35] LABS: Hematocrit 33.2 % (30.3-42.9); Mean Corpuscular HGB Conc 33 % (30-34); Mean Corpuscular Volume 88 fl (79-97); Platelet Count 262 K/mm3 (140-440); Red Blood Count 3.78 M/mm3 (3.65-5.03); Red Cell Distribution Width 14.5 % (13.2-15.2)
[2020-08-09] MEDS ORDERED: OXYTOCIN DRIP 30 UNITS/500 ML BAG IV SCH (23:00)
[2020-08-09] MEDS: LACTATED RINGERS 1,000 ML IV SCH (23:10)
[2020-08-09] MEDS ORDERED: DINOPROSTONE 10 MG VAG SUPP VG ONE (23:17)
[2020-08-10] MEDS: fentaNYL 100 MCG/2 ML INJ IV PRN ×2 (01:34→04:01)
[2020-08-10] MEDS: LACTATED RINGERS 1,000 ML IV SCH ×2 (04:02→08:54)
[2020-08-10] MEDS ORDERED: fentaNYL-BUPIV 2 MCG/ML-0.125% 200 MCG/100 ML BAG EPIDURAL ONE (06:09)
--- NOTE | 2020-08-10 06:12 | Anesthesia Consultation ---
Anesthesia Consult and Med Hx Date of service: 08/10/20 - Airway Anesthetic Teeth Evaluation: Poor ROM Head & Neck: Adequate Mental/Hyoid Distance: Adequate Mallampati Class: Class II Intubation Access Assessment: Probably Good - Pulmonary Exam CTA: Yes - Cardiac Exam Cardiac Exam: RRR - Pre-Operative Health Status ASA Pre-Surgery Classification: ASA3 Proposed Anesthetic Plan: Epidural - Pulmonary Hx Smoking: No Hx Asthma: No Hx Respiratory Symptoms: No SOB: No COPD: No Hx Pneumonia: No Hx Sleep Apnea: No - Cardiovascular System Hx Hypertension: Yes Hx Coronary Artery Disease: No Hx Heart Attack/AMI: No Hx Angina: No Hx Percutaneous Transluminal Coronary Angioplasty (PTCA): No Hx Cardia Arrhythmia: No Hx Pacemaker: No Hx Internal Defibrillator: No Hx Valvular Heart Disease: No Hx Heart Murmur: No Hx Peripheral Vascular Disease: No - Central Nervous System Hx Neuromuscular Disorder: No Hx Seizures: No CVA: No Hx Back Pain: No Hx Psychiatric Problems: No - Gastrointestinal Hx Ulcer: No Hx Gastroesophageal Reflux Disease: No - Endocrine Hx Renal Disease: No Hx End Stage Renal Disease: No Hx Cirrhosis: No Hx Liver Disease: No Hx Insulin Dependent Diabetes: No Hx Non-Insulin Dependent Diabetes: Yes Hx Thyroid Disease: No Hx Hypothyroidism: No Hx Hyperthyroidism: No - Hematic Hx Anemia: No Hx Sickle Cell Disease: No - Other Systems Hx Alcohol Use: No Hx Substance Use: No Hx Cancer: No Hx Obesity: Yes
--- NOTE | 2020-08-10 06:14 | Progress Note ---
Labor Epidural - Labor Epidural Start Time: 05:39 Stop Time: 05:50 Performed by:: FRANTZ DUMONT Procedure: Patient is requesting combined spinal epidural for labor and pain. H&P, labs were reviewed. All questions and concerns were answered. Informed consent was obtained. Timeout performed. Patient in sitting position on side of bed. Sterile prep and drape was performed. 3 mL 1% lidocaine skin wheal at L [4]-L [5]. 18-gauge Tuohy epidural needle advanced to [id number] using air technique, [8cm]. 27-gauge spinal needle advanced, positive free-flowing CSF. Spinal dose of [Precedex 5mcg]. Epidural catheter advanced to [12] cm. [negative] Aspiration, [negative] test dose. Sterile dressing applied. Patient tolerated procedure well.
--- NOTE | 2020-08-10 07:48 | History and Physical Report ---
History of Present Illness Date of examination: 08/10/20 Date of admission: 08/09/20 20:36 History of present illness: 30y/o @40+4 weeks who presents for induction of labor for gestational diabetes. The patient initiated care late in a at 18 weeks estimated gestational age. Her course is complicated by multiple factors to include a history of genital herpes with a recent prodrome approximately 2 weeks ago. The patient also has a history of gestational diabetes, history of incarceration during the , and a succenturiate lobe of the placenta. The patient has a known history of a delivery of a 10 pound . 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 Social history: single - Obstetrical History Expected Date of Delivery: 08/06/20 Actual Gestation: 40 Week(s) 4 Day(s) : 8 Para: 5 Hx # Term Pregnancies: 5 Number of Pregnancies: 0 Spontaneous Abortions: 2 Induced : 0 Number of Living Children: 5 Medications and Allergies Allergies Allergy/AdvReac Type Severity Reaction Status Date / Time No Known Allergies Allergy Verified 04/05/18 15:27 Home Medications Medication Instructions Recorded Confirmed Last Taken Type Vit-Fe Fumar-FA [ 1 tab PO QDAY 04/05/18 04/29/18 04/19/18 07:30 History Vitamin] valACYclovir [Valtrex] 2 tab PO QDAY 04/19/18 08/10/20 1 Day Ago History ~08/09/20 100 Ferrous Sulfate 325 mg PO BID #60 tablet. 04/20/18 04/29/18 Unknown Rx Ibuprofen [Motrin] 600 mg PO Q8H PRN #30 tablet 04/20/18 04/29/18 Unknown Rx oxyCODONE /ACETAMINOPHEN [Percocet 1 tab PO Q6HR PRN #30 tablet 04/20/18 04/29/18 1 Day Ago Rx 5/325] ~08/09/20 2 NIFEdipine XL [Procardia Xl] 90 mg PO BID #60 tablet 05/05/18 1 Day Ago Rx ~08/09/20 labetaloL [Labetalol 200mg TAB] 200 mg PO BID #60 tablet 05/05/18 1 Day Ago Rx ~08/09/20 oxyCODONE /ACETAMINOPHEN [Percocet 1 tab PO Q6HR PRN #20 tablet 05/05/18 1 Day Ago Rx 5/325] ~08/09/20 1 Active Meds: Active Medications Butorphanol Tartrate (Butorphanol 2 Mg/1 Ml Inj) 1 mg IV Q2H PRN PRN Reason: Pain, Moderate(4-6) LABOR PAIN Butorphanol Tartrate (Butorphanol 2 Mg/1 Ml Inj) 2 mg IV Q2H PRN PRN Reason: Pain , Severe (7-10) Ephedrine Sulfate (Ephedrine Sulfate 50 Mg/1 Ml Inj) 10 mg IV Q2M PRN PRN Reason: Hypotension Fentanyl (Fentanyl 100 Mcg/2 Ml Inj) 100 mcg IV Q2H PRN PRN Reason: Pain,Severe (7-10) LABOR PAIN Last Admin: 08/10/20 04:01 Dose: 100 mcg Documented by: Lactated Ringer's (Lactated Ringers) 1,000 mls @ 125 mls/hr IV DIRECT MICHELLE Last Admin: 08/10/20 04:02 Dose: 125 mls/hr Documented by: Oxytocin/Sodium Chloride (Pitocin/Ns 30 Unit/500ml) 30 units in 500 mls @ 40 m ls/hr IV DIRECT MICHELLE; Protocol Mineral Oil (Mineral Oil 30 Ml Oral Liqd) 30 ml PO QHS PRN PRN Reason: Constipation Naloxone HCl (Naloxone 0.4 Mg/1 Ml Inj) 0.1 mg IV Q2MIN PRN PRN Reason: Res Rate </= 8 or 02 SAT < 92% Ondansetron HCl (Ondansetron 4 Mg/2 Ml Inj) 4 mg IV Q8H PRN PRN Reason: Nausea And Vomiting Promethazine HCl (Promethazine 25 Mg Tab) 25 mg PO Q6H PRN PRN Reason: Nausea And Vomiting Terbutaline Sulfate (Terbutaline 1 Mg/1 Ml Inj) 0.25 mg SUB-Q ONCE PRN PRN Reason: Hyperstimulation/Hypertonicity Valacyclovir HCl (Valacyclovir 500 Mg Tab) 1,000 mg PO QDAY MICHELLE Review of Systems All systems: negative - Vital Signs Vital signs: Vital Signs Temp Pulse Resp BP Pulse Ox 98.6 F 90 18 119/68 99 08/09/20 21:54 08/09/20 21:54 08/09/20 21:54 08/09/20 21:54 08/09/20 21:54 Temp Pulse Resp BP Pulse Ox 98.6 F 90 18 111/60 99 08/09/20 21:54 08/10/20 07:39 08/10/20 06:27 08/10/20 07:24 08/10/20 07:39 - Physical Exam Breasts: Positive: deferred Cardiovascular: Regular rate Lungs: Positive: Clear to auscultation Abdomen: Positive: normal appearance Results Result Diagrams: 08/09/20 22:15 All other labs normal. Assessment and Plan - Patient Problems (1) Gestational diabetes mellitus in Current Visit: Yes Status: Acute Plan to address problem: Patient admitted for induction of labor
[2020-08-10] MEDS ORDERED: valACYclovir 500 MG TAB PO SCH (10:00)
[2020-08-10] MEDS ORDERED: LANOLIN/ZINC/DIMETHICONE (LANSINOH) 7 GM TP PRN (11:51)
[2020-08-10] MEDS ORDERED: HYDROcodone/ACETAMINOPHEN 5-325 MG TAB PO PRN (11:51)
[2020-08-10] MEDS ORDERED: PROMETHAZINE 25 MG TAB PO PRN (11:51)
[2020-08-10] MEDS ORDERED: MAGNESIUM HYDROXIDE (MOM) ORAL LIQD UDC PO PRN (11:51)
[2020-08-10] MEDS ORDERED: diphenhydrAMINE 25 MG CAP PO PRN (11:51)
[2020-08-10] MEDS ORDERED: ONDANSETRON 4 MG/2 ML INJ IV PRN (11:51)
[2020-08-10] MEDS ORDERED: ACETAMINOPHEN 325 MG TAB PO PRN (11:51)
[2020-08-10] MEDS ORDERED: WITCH HAZEL/ GLYCERIN PAD TP PRN (11:51)
[2020-08-10] MEDS ORDERED: PROMETHAZINE 25 MG RECT SUPP PR PRN (11:51)
--- NOTE | 2020-08-10 11:51 | Procedure Note ---
OB Delivery Note - Delivery Date of Delivery: 08/10/20 Surgeon: RAHEEL BLANCAS Estimated blood loss: 200cc - Vaginal Delivery presentation: vertex Delivery position: OA Delivery augmentation: pitocin Delivery monitor: external FHT, external uterine Route of delivery: Delivery placenta: spontaneous, manual Delivery cord: 3 umbilical vessels Delivery laceration: none Anesthesia: epidural Delivery comments: Patient progressed to complete complete +2 and had a spontaneous vaginal delivery of a liveborn female infant with Apgars of 8 and 9 weight 8 pounds 4 ounces. After delivery of the head the shoulders delivered without difficulty. The was placed immediately on the patient's abdomen. Cord clamping was delayed. The cord was clamped and cut and the placenta delivered spontaneously intact. The uterine cavity was swept however the succinate lobe could not be identified. Lochia was appropriate for the delivery. No lacerations were noted. Estimated blood loss of 200 mL - Infant A at 1 minute: 8 at 5 minutes: 9 Gender: Female (Weight 8 pounds 4 ounces)
[2020-08-10] MEDS: IBUPROFEN 600 MG TAB PO SCH ×2 (13:29→17:54)
--- NOTE | 2020-08-10 16:04 | Post Anesthesia Evaluation ---
- Post Anesthesia Evaluation Patient Participated: Yes Airway Patent: Yes Stable Respiratory Function: Yes Nausea/Vomiting: No Temp > 96.8F: Yes Pain Manageable: Yes (c/o of headache. Denies neck stiffness, light sensitivity. ) Adequeate Hydration: Yes Anesthesia Complications: No Block Receding Appropriately: Yes Patient on Ventilator: No
[2020-08-11] MEDS: IBUPROFEN 600 MG TAB PO SCH ×4 (00:41→22:02)
[2020-08-11 01:17] LABS: Hematocrit 29.8 % (30.3-42.9); Hemoglobin 9.7 gm/dl (10.1-14.3)
--- NOTE | 2020-08-11 13:42 | Progress Note ---
Assessment and Plan - Patient Problems (1) Gestational diabetes mellitus in Current Visit: Yes Status: Acute Plan to address problem: Patient doing well Discharge home Subjective - Subjective Date of service: 08/11/20 Interval history: Patient experiencing uterine cramping with breast-feeding. She states her lochia is decreasing. Patient reports: appetite normal, voiding normally, pain well controlled [place]: doing well, nursing well Objective - Vital Signs Latest vital signs: Vital Signs Temp Pulse Resp BP BP Pulse Ox 08/11/20 07:59 97.8 F 77 20 111/63 99 08/11/20 00:42 98.1 F 92 H 20 121/66 98 08/11/20 00:41 16 08/10/20 21:11 16 08/10/20 20:51 98.3 F 83 20 116/63 97 08/10/20 17:54 18 08/10/20 17:02 97.9 F 83 18 116/59 99 08/10/20 13:45 97.8 F 103 H 20 115/67 98 Intake and Output 08/10/20 08/11/20 08/11/20 22:59 06:59 14:59 Intake Total 1320 240 120 Output Total 825 Balance 495 240 120 Intake: Oral 720 240 120 Intake, Free Water 600 Output: Urine 825 Void 825 Other: Total, Intake Amount 240 240 120 Total, Output Amount 350 # Voids Void 1 1 1 - Exam Uterus: Present: normal, firm - Labs Labs: Abnormal lab results 08/11/20 Range/Units 01:02 Hgb 9.7 L (10.1-14.3) gm/dl Hct 29.8 L (30.3-42.9) %
--- NOTE | 2020-08-11 13:43 | Discharge Summary ---
Providers - Providers Date of Admission: 08/09/20 20:36 Date of discharge: 08/11/20 Attending physician: VIVIANE LUGO Primary care physician: VIVIANE LUGO Hospitalization Reason for admission: induction of labor Delivery: Discharge diagnosis: IUP at term delivered Hospital course: The patient was admitted for induction of labor secondary to gestational diabetes. The patient had a normal spontaneous vaginal delivery. course was uneventful. Condition at discharge: Good Disposition: DC-[id number] TO HOME OR SELFCARE - Discharge Diagnoses (1) Gestational diabetes mellitus in Status: Acute Plan - Discharge Medications Prescriptions: Ibuprofen [Motrin] 800 mg PO Q8HR PRN #30 tablet PRN Reason: Pain , Severe (7-10) HYDROcodone/APAP 5-325 [[place] 5/325] 1 each PO Q6HR PRN #15 tablet PRN Reason: Pain - Provider Discharge Summary Activity: no sex for 6 weeks, no heavy lifting 4 weeks, no strenuous exercise Diet: routine Instructions: routine Additional instructions: [] Smoking cessation referral if applicable(refer to patient education folder for contact #) [] Refer to [facility] Booklet Call your doctor immediately for: * Fever > 100.5 * Heavy vaginal bleeding ( >1 pad per hour) * Severe persistent headache * Shortness of breath * Reddened, hot, painful area to leg or breast * Schedule visit in 4 weeks - Follow up plan
[2020-08-12] MEDS: IBUPROFEN 600 MG TAB PO SCH ×3 (05:18→10:20)
[2020-08-12 13:55] VITALS: BP 124/70
== END 2020-08-12 15:25 | disposition home or self-care (01) | DRG 775 ==
LOC: LD 20:36 → OB 08-10 13:54
PROVIDERS: ADMIT Obstetrics & Gynecology; ATTEND Obstetrics & Gynecology
PROC: 10E0XZZ Delivery of Products of Conception, External Approach (ICD-10-PCS; principal; 2020-08-10)
PROC: 3E0R3BZ Introduction of Anesthetic Agent into Spinal Canal, Percutaneous Approach (ICD-10-PCS; 2020-08-10)
PROC: 00HU33Z Insertion of Infusion Device into Spinal Canal, Percutaneous Approach (ICD-10-PCS; 2020-08-10)
PROC: 3E033VJ Introduction of Other Hormone into Peripheral Vein, Percutaneous Approach (ICD-10-PCS; 2020-08-10)
DX: O24.429 Gestational diabetes mellitus in childbirth, unspecified control (principal); Z3A.40 40 weeks gestation of pregnancy; Z37.0 Single live birth
CPT/HCPCS: 36415; 59025; 59200; 82962; 85014; 85018; 85027; 86592; 86850; 86900; 86901; G0378; A6250; J2405; J2590; J3010; J7120; U0003